=== PATIENT | male | born 1955 | race Caucasian/White ===

== ENCOUNTER 2018-07-13 08:49 | Day surgery (SDC) | payer BC ==
[~2018-07-13 08:49] MED LIST: Lactated Ringers 1,000 ML IV ONE; Sensorcaine 0.25% 10 ML ONE
[2018-07-13] MEDS ORDERED: DIPRIVAN 200 MG/20 ML IV ONE (08:50)
[2018-07-13] MEDS ORDERED: Ketamine HCl 50 MG/ML IJ ONE (08:50)
[2018-07-13] MEDS ORDERED: Lactated Ringers 1,000 ML IV ONE (08:59)
[2018-07-13] MEDS ORDERED: Lactated Ringers 1,000 ML IV SCH (09:00)
[2018-07-13] MEDS ORDERED: XYLOCAINE 1% HCL 20 ML MDV ONE (10:56)
[2018-07-13 12:37] VITALS: BP 134/84; PULSE 67; O2SAT 99
--- NOTE | 2018-07-13 12:44 | OP ---
SURGERY DATE/TIME: 07/13/2018 1055 PREOPERATIVE DIAGNOSES: 1) Skin cancer left shoulder. 2) Screening. POSTOPERATIVE DIAGNOSES: 1) Two rectal polyps, one jar. Complete exam to colon with hot polypectomy x2, one jar. 2) Excision and closure of left shoulder lesion 1.2 cm through a 4 cm elliptical excision and closure. PROCEDURES: 1) Excision left shoulder lesion. 2) Colonoscopy. SURGEON: Ray Pineda M.D. ANESTHESIA: MAC. COMPLICATIONS: None. CONDITION: Stable. INDICATION: A patient requiring evaluation with screening and also a skin lesion probably cancer left shoulder. DESCRIPTION OF PROCEDURE: Taken to surgery. Routine prep and drape. MAC sedation. 1% lidocaine. Elliptical excision necessary to mobilize flaps slightly approximately inverted 4-0 Vicryl. Steri-Strips applied. Sterile dressing applied. Patient turned left lateral decubitus position. Scope introduced. Scope advanced to the cecum. A fairly spastic colon today with MAC sedation. The base of the cecum, ileocecal valve, appendiceal orifice satisfactory. Ascending, hepatic, transverse, splenic, descending and sigmoid were quite spastic limiting exam slightly Rectum two polyps, 1 cm polyp and a 6 mm polyp taken and submitted in the same jar with hot biopsy forceps in the upper rectum. Patient tolerated the procedure satisfactorily.
== END 2018-07-13 12:52 | disposition home or self-care (01) ==
LOC: SDC 08:49
PROVIDERS: ATTEND Surgery
DX: Z12.11 Encounter for screening for malignant neoplasm of colon (principal); D12.8 Benign neoplasm of rectum; C44.619 Basal cell carcinoma of skin of left upper limb, including shoulder
CPT/HCPCS: 88305; J2704